=== PATIENT | female | born 1985 | race Caucasian/White ===

== ENCOUNTER 2017-01-02 19:04 | Emergency (ER) | payer MEDICAID ==
[~2017-01-02] VITALS: Ht 170.2 cm; Wt 79.0 kg
[2017-01-02 19:57] VITALS: Ht 170.2 cm; Wt 79.0 kg
[2017-01-02] MEDS ORDERED: ACET500C5 PO (23:07)
--- NOTE | 2017-01-02 23:12 | ERD ---
ER Documentation Chief Complaint Chief Complaint BIB SELF, CC; BILATERAL ARM PAIN X 3 DAYS, SEEN BY PMD, 20 WKS. PREG HPI 31-year-old female who is 20 weeks complaining of bilateral arm pain and paresthesias that she has had for over 1 week. It makes it difficult for her to sleep at night. No trauma. She saw her primary care doctor but no medications were given. She has no OB complaints. No abdominal pain. No nausea or vomiting. No chest pain. No vaginal bleeding. No urinary symptoms. ROS All systems reviewed and are negative except as per history of present illness. Medications Home Meds Active Scripts Acetaminophen* (Tylophen*) 500 Mg Capsule, 2 CAP PO Q8H Y for PAIN AND OR ELEVATED TEMP, #30 CAP Prov:ALEXYS GERARD PA-C 01/02/17 Allergies Allergies: Coded Allergies: No Known Drug Allergy (Verified Allergy, Unknown, 11/06/07) PMhx/Soc Medical and Surgical Hx: pt denies Medical Hx, pt denies Surgical Hx Hx Alcohol Use: No Hx Substance Use: No Hx Tobacco Use: No Smoking Status: Never smoker FmHx Family History: No diabetes Physical Exam Vitals Vital Signs Date Time Temp Pulse Resp B/P Pulse Ox O2 Delivery O2 Flow Rate FiO2 01/02/17 19:57 98.1 87 18 115/57 98 Physical Exam INITIAL VITAL SIGNS: Reviewed by me GENERAL: Awake, alert and oriented x 4, well appearing, nontoxic, speaking in full sentences. No acute distress HEAD: Atraumatic NECK: Supple. No masses. Full range of motion. No meningismus. No midline tenderness. RESPIRATORY: Clear to auscultation bilaterally. Symmetric chest wall rise. No wheezing or rales. No accessory muscle use. CV: Regular rate and rhythm. No murmurs, rubs, or gallops. ABDOMEN: Soft, non-distended. Nontender. Negative [place]. Negative McBurneys point tenderness. No CVA tenderness bilaterally. No guarding. No rebound. : Deffered. EXTREMITIES: No clubbing or cyanosis. No edema. 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 Face is symmetric. Moves all extremities equally. Motor and sensory distally intact. Normal coordination. Ambulates with a strong steady gait. Procedures/MDM Patient has pain and paresthesias in her bilateral upper extremities. She is . Patients is alert, oriented, well appearing, and in no distress with normal vital signs. There is no fever, tachycardia, or tachypnea. Patient' s examination is normal. Reviewed the case with Dr. Gayle who recommended Accu -Chek a EKG which were performed. Patient is discharged with Tylenol. Patient counseled regarding my diagnostic impression and care plan. Prior to discharge all questions answered. Pt agrees with treatment plan and understands strict return precautions. Pt is instructed to follow up with primary care provider within 24-48 hours. Precautionary instructions provided including instructions to return to the ER if not improving or for any worsening or changing symptoms or concerns. Departure Diagnosis: Primary Impression: Bilateral arm pain Condition: Stable Patient Instructions: Paraesthesias Additional Instructions: Llame al doctor ROXANA y hiro kim BALJIT PARA DENTRO DE 1-2 ESPINOSA.Dgale a la secretaria que nosotros le instruimos hacer esta baljit.Avise o llame si zhu condicin se empeora antes de la baljit. Regresa aqui si peor o no mejor. ALEXYS GERARD PA-C Jan 02, 2017 23:12
[2017-01-02 23:50] VITALS: BP 118/67; PULSE 70; RESP 18; TEMP 98.2
== END 2017-01-02 23:50 | disposition home or self-care (01) ==
LOC: FTE 19:04
DX: O99.89 Other specified diseases and conditions complicating pregnancy, childbirth and the puerperium (principal); M79.601 Pain in right arm; M79.602 Pain in left arm; Z3A.20 20 weeks gestation of pregnancy
CPT/HCPCS: 82962; 93005; Z7502

== ENCOUNTER 2017-04-16 17:32 | Outpatient (CLI) | END 2017-04-16 19:50 | disposition home or self-care (01) ==

== ENCOUNTER 2017-04-25 13:00 | Outpatient (CLI) | END 2017-04-25 14:28 | disposition home or self-care (01) ==

== ENCOUNTER 2017-04-29 17:01 | Inpatient (IN) | END 2017-05-01 21:30 | disposition home or self-care (01) | DRG 775 ==